=== PATIENT | male | born 1970 | race Caucasian/White ===

== ENCOUNTER 2018-10-07 19:51 | Emergency (ER) | payer OTHER ==
[~2018-10-07] VITALS: Ht 167.6 cm; Wt 81.6 kg
[2018-10-07] MEDS ORDERED: IV NORMAL SALINE 1000ML BAG 1,000 ML IV ONE (20:30)
[2018-10-07] MEDS ORDERED: DEXAMETHASONE SOD PHOS 20 MG/5 ML VIAL. IV ONE (20:30)
[2018-10-07] MEDS ORDERED: ONDANSETRON PF 4 MG/2 ML VIAL. IV ONE (20:30)
--- NOTE | 2018-10-07 20:30 | PHYS DOC ---
Adult General Chief Complaint Chief Complaint: SHORTNESS OF BREATH HPI HPI Patient is a 48 year old male who presents with shortness of breath that was sudden in onset at 4 pm this afternoon. He decided to lay down and take a nap with hopes of relieving his symptoms, however throughout his 2 hour nap he continuously woke up feeling short of breath. At 600 pm he decided to eat some food to try to relieve his symptoms with no success. Due to inability to relieve symptoms at home he decided to be evaluated in the ER. He states lying down flat makes his symptoms worse. Standing up helps relieve his symptoms. He denies any chest pain, cough, unilateral leg swelling. [] Review of Systems Review of Systems Constitutional: Denies fever or chills [] Eyes: Denies eye pain or redness[] HENT: Denies nasal congestion or sore throat [] Respiratory: Reports shortness of breath, denies cough[] Cardiovascular: Denies chest pain or palpitations[] GI: Denies abdominal pain, nausea, vomiting [] : Denies dysuria or hematuria [] Musculoskeletal: Denies back pain or joint pain [] Integument: Denies rash or skin lesions [] Neurologic: Denies headache, focal weakness or sensory changes [] Complete systems were reviewed and found to be within normal limits, except as documented in this note. Current Medications Current Medications Current Medications Medications (Trade) Dose Ordered Sig/Nathalia Start Time Stop Time Status Last Admin Dose Admin Dexamethasone Sodium Phosphate (Decadron) 10 mg 1X ONCE 10/07/18 20:30 10/07/18 20:39 DC 10/07/18 21:16 10 MG Ondansetron HCl (Zofran) 4 mg 1X ONCE 10/07/18 20:30 10/07/18 20:39 DC 10/07/18 21:16 4 MG Sodium Chloride 1,000 ml @ 1,000 mls/hr 1X ONCE 10/07/18 20:30 10/07/18 21:29 DC 10/07/18 21:16 1,000 MLS/HR Allergies Allergies Allergies Coded Allergies Type Severity Reaction Last Updated Verified morphine Allergy Unknown 10/07/18 Yes Physical Exam Physical Exam Constitutional: No acute distress, non-toxic appearance. [] HENT: Normocephalic, atraumatic. [] Eyes: EOMI, conjunctiva normal. [] Neck: Normal range of motion, supple. [] Cardiovascular:Heart rate regular rhythm, no murmur [] Lungs & Thorax: Bilateral breath sounds clear to auscultation, no rhonchi or rails or wheezes [] Abdomen: Bowel sounds normal, soft, no tenderness. [] Skin: Warm, dry, no erythema, no rash. [] Back: No tenderness, no CVA tenderness. [] Extremities: No tenderness, no cyanosis, no unilateral leg swelling. [] Neurologic: Alert and oriented X 3, no focal deficits noted. [] Psychologic: Affect normal,mood normal. [] Current Patient Data Vital Signs Vital Signs Date Time Temp Pulse Resp B/P (MAP) Pulse Ox O2 Delivery O2 Flow Rate FiO2 10/07/18 22:46 86 15 126/85 (99) 97 Room Air 10/07/18 20:13 98.4 98.4 Lab Values Laboratory Tests Test 10/07/18 20:44 White Blood Count 9.5 x10^3/uL (4.0-11.0) Red Blood Count 4.77 x10^6/uL (4.30-5.70) Hemoglobin 14.5 g/dL (13.0-17.5) Hematocrit 42.3 % (39.0-53.0) Mean Corpuscular Volume 89 fL (79-100) Mean Corpuscular Hemoglobin 30 pg (25-35) Mean Corpuscular Hemoglobin Concent 34 g/dL (31-37) Red Cell Distribution Width 13.3 % (11.5-14.5) Platelet Count 262 x10^3/uL (140-400) Neutrophils (%) (Auto) 58 % (31-73) Lymphocytes (%) (Auto) 31 % (24-48) Monocytes (%) (Auto) 9 % (0-9) Eosinophils (%) (Auto) 2 % (0-3) Basophils (%) (Auto) 1 % (0-3) Neutrophils # (Auto) 5.5 x10^3uL (1.8-7.7) Lymphocytes # (Auto) 2.9 x10^3/uL (1.0-4.8) Monocytes # (Auto) 0.8 x10^3/uL (0.0-1.1) Eosinophils # (Auto) 0.2 x10^3/uL (0.0-0.7) Basophils # (Auto) 0.0 x10^3/uL (0.0-0.2) Prothrombin Time 11.9 SEC (11.7-14.0) Prothrombin Time INR 0.9 (0.8-1.1) Sodium Level 140 mmol/L (136-145) Potassium Level 3.6 mmol/L (3.5-5.1) Chloride Level 102 mmol/L (98-107) Carbon Dioxide Level 24 mmol/L (21-32) Anion Gap 14 (6-14) Blood Urea Nitrogen 22 mg/dL (8-26) Creatinine 1.1 mg/dL (0.7-1.3) Estimated GFR (Cockcroft-Gault) 72.1 BUN/Creatinine Ratio 20 (6-20) Glucose Level 111 mg/dL (70-99) H Calcium Level 9.7 mg/dL (8.5-10.1) Magnesium Level 2.1 mg/dL (1.8-2.4) Total Bilirubin 0.3 mg/dL (0.2-1.0) Aspartate Amino Transferase (AST) 32 U/L (15-37) Alanine Aminotransferase (ALT) 75 U/L (16-63) H Alkaline Phosphatase 71 U/L (46-116) Creatine Kinase 250 U/L (39-308) Creatine Kinase MB (Mass) 1.9 ng/mL (0.0-3.6) Creatine Kinase MB Relative Index 0.8 % (0-4) Troponin I Quantitative < 0.017 ng/mL (0.000-0.055) JQ-Stm-I-Type Natriuretic Peptide 5 pg/mL (0-124) Total Protein 7.6 g/dL (6.4-8.2) Albumin 3.8 g/dL (3.4-5.0) Albumin/Globulin Ratio 1.0 (1.0-1.7) Lipase 94 U/L (73-393) Laboratory Tests 10/07/18 20:44 Laboratory Tests 10/07/18 20:44 EKG EKG @93bpm, NSR at 93bpm, NO ST elevation, Q wave II-III and aVF, a5-V6 Radiology/Procedures Radiology/Procedures PROCEDURE: CHEST PA & LATERAL PROCEDURE: CHEST PA LATERAL CLINICAL INDICATION: SOA COMPARISON: None FINDINGS: No pneumothorax identified. Cardiac and mediastinal contours unremarkable. No pulmonary consolidation or acute airspace disease. No acute osseous abnormalities identified. IMPRESSION: No pulmonary consolidation or acute airspace disease. Electronically signed by: Dwayne Christiansen DO (10/07/2018 9:07 PM) [facility] DICTATED and SIGNED BY: DWAYNE CHRISTIANSEN DO DATE: 10/07/18 2107[] Course & Med Decision Making Course & Med Decision Making 48-year-old male presents emergency Department due to sudden onset of shortness of breath. Pertinent Labs and Imaging studies reviewed. Chest x-ray showed no focal process. Patient states feels like he is breathing easier now. Encourage patient to keep an appointment with primary care and health specialist later in the week. Patient stable for discharge with outpatient follow-up with PCP. Discussed findings and plan with patient and family, who acknowledge understanding and agreement.(See chart for details) [] Dragon Disclaimer Dragon Disclaimer This electronic medical record was generated, in whole or in part, using a voice recognition dictation system. Departure Departure Impression: Primary Impression: Shortness of breath Disposition: 01 HOME, SELF-CARE Condition: STABLE Referrals: NO PCP (PCP) Patient Instructions: Shortness of Breath, [id number] MATTHEW BASURTO DO Oct 07, 2018 20:30
[2018-10-07 20:54] LABS: BASO % 1 % (0-3); EOS # 0.2 x10^3/uL (0.0-0.7); EOS % 2 % (0-3); HEMATOCRIT 42.3 % (39.0-53.0); HEMOGLOBIN 14.5 g/dL (13.0-17.5); LYMPH # 2.9 x10^3/uL (1.0-4.8); LYMPH % 31 % (24-48); MEAN CORPUSCULAR HEMOGLOBIN 30 pg (25-35); MEAN CORPUSCULAR HGB CONC 34 g/dL (31-37); MEAN CORPUSCULAR VOLUME 89 fL (79-100); MONO # 0.8 x10^3/uL (0.0-1.1); MONO % 9 % (0-9); NEUT # 5.5 x10^3uL (1.8-7.7); NEUT % 58 % (31-73); PLATELET COUNT 262 x10^3/uL (140-400); RED BLOOD COUNT 4.77 x10^6/uL (4.30-5.70); RED CELL DISTRIBUTION WIDTH 13.3 % (11.5-14.5); WHITE BLOOD COUNT 9.5 x10^3/uL (4.0-11.0)
[2018-10-07 21:01] LABS: PROTHROMBIN TIME PATIENT 11.9 SEC (11.7-14.0)
[2018-10-07 21:06] LABS: CALCIUM 9.7 mg/dL (8.5-10.1); CREATININE 1.1 mg/dL (0.7-1.3); GFR 72.1; POTASSIUM 3.6 mmol/L (3.5-5.1)
--- NOTE | 2018-10-07 21:10 | RAD ---
PROCEDURE: CHEST PA LATERAL CLINICAL INDICATION: SOA COMPARISON: None FINDINGS: No pneumothorax identified. Cardiac and mediastinal contours unremarkable. No pulmonary consolidation or acute airspace disease. No acute osseous abnormalities identified. IMPRESSION: No pulmonary consolidation or acute airspace disease. Electronically signed by: Dwayne Yarbrough DO (10/07/2018 9:07 PM) [facility]
[2018-10-07 21:11] LABS: ALBUMIN 3.8 g/dL (3.4-5.0); MAGNESIUM 2.1 mg/dL (1.8-2.4); TOTAL BILIRUBIN 0.3 mg/dL (0.2-1.0); TOTAL PROTEIN 7.6 g/dL (6.4-8.2)
[2018-10-07 22:46] VITALS: BP 126/85
--- NOTE | 2018-10-08 07:56 | EKG ---
[facility] [address] [place] [address] Test Date: 2018-10-07 Test Time: 20:21:02 Pat Name: RAFFY FONSECA Department: Room: Gender: M [employer]: : 1970 Requested By: MATTHEW BASURTO Order Number: [id number] Reading MD: Jordan Jane MD Measurements Intervals Rowdy Rate: 93 P: 29 [place]: 130 QRS: 54 QRSD: 78 T: 42 QT: 330 QTc: 413 Interpretive Statements SINUS RHYTHM Electronically Signed On 10-09-2018 9:32:35 CDT by Jordan Jane MD
== END 2018-10-07 22:47 | disposition home or self-care (01) ==
LOC: ER 19:51
DX: R06.02 Shortness of breath (principal); Z88.5 Allergy status to narcotic agent
CPT/HCPCS: 36415; 71046; 80053; 82553; 83690; 83735; 83880; 84484; 85025; 85610; 93005; 96374; 96375; 99284; J1100; J2405; J7030